=== PATIENT | female | born 1970 | race Caucasian/White ===

== ENCOUNTER 2017-06-26 10:23 | Emergency (ER) | payer OTHER ==
[~2017-06-26] VITALS: Ht 165.1 cm; Wt 122.5 kg
[~2017-06-26 10:23] MED LIST: CIPRO500 MG PO; HYDROCHLOROTH12.5 MG PO; IBUPROFEN 600600 M1 PO; LISINOPRIL-HCT1 EAC1 PO; LISINOPRIL-HCT1 EAC2; LISINOPRIL20 MG PO; MEDROL DOSPAK21 TA1 PO; METOPROLOL SUCC25 M1 PO; NAPROSYN500 MG PO; NORCO 5-325 TA1 EACH PO; ONDANSETRON HCL4 M2 PO; TOPROL XL50 MG; VENLAFAXINE H37.5 MG PO; ZANTAC 150MG T150 M1 PO; ZESTORETIC 20-1 EAC1 PO; ZOLOFT100 MG PO; ZPAK; ZPAK PO
[2017-06-26 11:18] LABS: ABSOLUTE BASOPHILS 0.1 thou/uL (0.0-0.2); ABSOLUTE EOSINOPHILS 0.2 thou/uL (0.0-0.7); ABSOLUTE LYMPHOCYTES 1.9 thou/uL (0.8-5.3); ABSOLUTE MONOCYTES 0.4 thou/uL (0.0-1.2); ABSOLUTE NEUTROPHILS 4.3 thou/uL (1.6-8.1); BASOPHILS 0.8 %; EOSINOPHILS 2.2 %; HEMATOCRIT 40.9 % (37.0-47.0); HEMOGLOBIN 13.9 gm/dL (12.0-15.0); LYMPHOCYTES 28.2 %; MCH 30.7 pg (26.0-34.0); MCV 90.4 fL (80.0-100.0); MONOCYTES 5.9 %; MPV 8.1 fl. (7.2-11.1); NUCLEATED RBCS 0 /100WBC; PLATELET COUNT* 268 thou/uL (150-400); POLYS 62.9 %; RBC 4.52 mil/uL (4.20-5.00); RDW-CV 13.3 % (10.5-14.5); WBC 6.8 thou/uL (4.0-11.0)
[2017-06-26 11:25] LABS: CALCIUM 8.9 mg/dL (8.5-10.1); CREATININE 0.8 mg/dL (0.6-1.3); POTASSIUM 3.3 mmol/L (3.5-5.1)
--- NOTE | 2017-06-26 11:25 | EKG ---
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: : 1970 Requested By: Gege Salvador Order Number: [id number] MD: Naman Bansal Measurements Intervals [place] Rate: 68 P: 50 DC: 168 QRS: -13 QRSD: 91 T: 27 QT: 418 QTc: 445 Interpretive Statements Sinus rhythm Probable left atrial enlargement Low voltage, precordial leads Compared to ECG 11/22/2016 09:37:51 No significant changes Electronically Signed On 06-26-2017 11:24:53 CDT by Naman Bansal [email or web address] <ELECTRONICALLY SIGNED> By: Naman Bansal MD, [facility] 06/26/17 1124 1047 104 Naman Bansal MD, FACC /EPI
[2017-06-26 11:30] LABS: URINE BILIRUBIN NEGATIVE (Negative); URINE BLOOD TRACE (Negative); URINE CLARITY CLEAR; URINE COLOR YELLOW; URINE GLUCOSE-RANDOM NEGATIVE (Negative); URINE KETONES NEGATIVE (Negative); URINE LEUKOCYTES-REFLEX NEGATIVE (Negative); URINE NITRITE-REFLEX NEGATIVE (Negative); URINE PROTEIN NEGATIVE (Negative); URINE SPECIFIC GRAVITY >= 1.030 (1.005-1.030); URINE UROBILINOGEN 0.2 E.U./dl (0.2-1.0)
[2017-06-26 11:30] LABS: ALBUMIN 3.6 g/dL (3.4-5.0); TOTAL BILIRUBIN 0.5 mg/dL (<0.1-1.0); TOTAL PROTEIN 7.1 g/dL (6.4-8.2)
[2017-06-26 11:37] LABS: AMP/METHAMP Negative (Negative); BARBITURATES Negative (Negative); BENZODIAZEPINES Negative (Negative); COCAINE Negative (Negative); METHADONE Negative (Negative); OPIATES Negative (Negative); PCP Negative (Negative); THC Negative (Negative)
[2017-06-26 12:48] VITALS: BP 138/85
== END 2017-06-26 12:49 | disposition home or self-care (01) ==
LOC: M.ERS 10:23
PROVIDERS: Nurse Practitioner Family
DX: B34.9 Viral infection, unspecified (principal); J30.9 Allergic rhinitis, unspecified; I10 Essential (primary) hypertension; F32.9 Major depressive disorder, single episode, unspecified; Z90.710 Acquired absence of both cervix and uterus; Z88.5 Allergy status to narcotic agent

== ENCOUNTER 2017-06-29 15:38 | Inpatient (IN) | payer OTHER ==
[~2017-06-29] VITALS: Ht 165.1 cm; Wt 123.4 kg
[2017-06-29 15:47] VITALS: BP 155/99
--- NOTE | 2017-06-29 16:10 | NUR ---
TO C.T. SCAN VIA STRETCHER W/ RN & MOTOR VEHICLE DISPATCHER IN USE.
[2017-06-29 16:13] LABS: ABSOLUTE BASOPHILS 0.1 thou/uL (0.0-0.2); ABSOLUTE EOSINOPHILS 0.2 thou/uL (0.0-0.7); ABSOLUTE LYMPHOCYTES 2.8 thou/uL (0.8-5.3); ABSOLUTE MONOCYTES 0.8 thou/uL (0.0-1.2); ABSOLUTE NEUTROPHILS 4.7 thou/uL (1.6-8.1); BASOPHILS 0.8 %; EOSINOPHILS 2.2 %; HEMATOCRIT 42.8 % (37.0-47.0); HEMOGLOBIN 14.7 gm/dL (12.0-15.0); LYMPHOCYTES 32.8 %; MCH 31.4 pg (26.0-34.0); MCHC 34.3 g/dL (28.0-37.0); MCV 91.7 fL (80.0-100.0); MONOCYTES 9.5 %; MPV 8.1 fl. (7.2-11.1); NUCLEATED RBCS 0 /100WBC; PLATELET COUNT* 300 thou/uL (150-400); POLYS 54.7 %; RBC 4.67 mil/uL (4.20-5.00); RDW-CV 13.1 % (10.5-14.5); WBC 8.5 thou/uL (4.0-11.0)
--- NOTE | 2017-06-29 16:17 | NUR ---
RETURNED FROM CT SCAN TO ED ROOM. MIC MALONE.
[2017-06-29 16:21] LABS: ANION GAP 10 mmol/L (7-16); BUN 18 mg/dL (7-18); CALCIUM 9.2 mg/dL (8.5-10.1); CHLORIDE 103 mmol/L (98-107); CO2 27 mmol/L (21-32); CREATININE 0.8 mg/dL (0.6-1.3); GLUCOSE 103 mg/dL (70-99); POTASSIUM 3.8 mmol/L (3.5-5.1); SODIUM 140 mmol/L (136-145)
[2017-06-29 16:23] LABS: PROTIME 9.8 Seconds (9.20-11.50)
[2017-06-29 16:27] LABS: POC CA IONIZED 4.7 mg/dL (4.5-5.3); POC CREATININE 0.7 mg/dL (0.6-1.3); POC POTASSIUM 3.8 mmol/L (3.5-4.9)
[2017-06-29 16:32] LABS: ACETAMINOPHEN < 2 ug/mL (10-30); ALBUMIN 3.8 g/dL (3.4-5.0); ALCOHOL < 10 mg/dL (<10); ALKALINE PHOSPHATASE 77 U/L (46-116); LIPASE 157 U/L (73-393); NT-PRO BRAIN NAT PEPTIDE 32 pg/mL (<300); SALICYLATE < 2.8 mg/dL (2.8-20.0); SGOT 50 U/L (15-37); SGPT 66 U/L (30-65); TOTAL BILIRUBIN 0.2 mg/dL (<0.1-1.0); TOTAL PROTEIN 7.6 g/dL (6.4-8.2); TROPONIN-I LEVEL <0.06 ng/mL (<0.06)
[2017-06-29 16:52] LABS: URINE BILIRUBIN NEGATIVE (Negative); URINE BLOOD NEGATIVE (Negative); URINE CLARITY SL CLOUDY; URINE COLOR YELLOW; URINE GLUCOSE-RANDOM NEGATIVE (Negative); URINE KETONES NEGATIVE (Negative); URINE LEUKOCYTES-REFLEX NEGATIVE (Negative); URINE NITRITE-REFLEX NEGATIVE (Negative); URINE PROTEIN NEGATIVE (Negative); URINE SPECIFIC GRAVITY <= 1.005 (1.005-1.030); URINE UROBILINOGEN 0.2 E.U./dl (0.2-1.0)
[2017-06-29 17:04] LABS: BACTERIA-REFLEX 1-9 Few /HPF (None Seen); CASTS None Seen /LPF (None Seen); CRYSTALS None Seen /LPF (None Seen); MUCUS 0-3 Light strn/LPF (None Seen); SQUAMOUS >10 Many /LPF (0-3); URINE RBC 0-2 Rare /HPF (0-2); URINE WBC-REFLEX None Seen /HPF (0-5)
[2017-06-29 17:09] LABS: AMP/METHAMP Negative (Negative); BARBITURATES Negative (Negative); BENZODIAZEPINES Negative (Negative); COCAINE Negative (Negative); METHADONE Negative (Negative); OPIATES Negative (Negative); PCP Negative (Negative); THC Negative (Negative)
--- NOTE | 2017-06-29 17:18 | NUR ---
RAMÓN IN MRI REQUESTS PT COME TO MRI PRIOR TO GOING TO TELEMETRY AND CONCRETE PRECAST MOULDER WILL TAKE PT TO TELEMETRY. TRANSITION ASSISTANT LACY NOTIFIED OF SAME.
[2017-06-29 18:09] VITALS: BP 144/90
[2017-06-29 18:58] VITALS: BP 150/98
[2017-06-29 20:00] VITALS: BP 177/100
[2017-06-30] VITALS: BP 144/88
[2017-06-30 04:00] VITALS: BP 103/70; BP 110/63
--- NOTE | 2017-06-30 04:31 | NUR ---
PATIENT RESTED IN BED. PATIENT COMPLAIN OF SHORTNESS OF BREATH, CHEST PAIN, TIGHNESS OF THROAT ONCE LEVOFLOXACIN BEGUN TO RUN. INFUSION STOPPED, NOT COMPLETED. DOCTOR NOTIFIED, NO NEW ORDERS. PATIENTS SYMPTOMS WERE COMPLETELY RESOLVED. PATIENT NO LONGER COMPLAINS OF TIGHNESS OF THROAT. PATIENT DOES NOT HAVE CHEST PAIN. PATIENT NOT HAVE SHORTNESS OF BREATH. PATIENT IS NPO FOR SPEECH EVALUATION. PATIENT DOOES NOT SHOW SIGNS OF CONFUSION OR SLURRED SPEECH. PATIENT IS NOT SHOWING SIGNS OF DISTRESS. FALL PRECAUTIONS IN PLACE, BLOOD PRESSURE AND VITALS ARE WITHIN NORMAL. CALL LIGHT WITHIN REACH, HOURLY ROUNDING OBSERVED.
[2017-06-30 05:10] LABS: CHOLESTEROL 204 mg/dL (<200); HDL CHOLESTEROL 43 mg/dL (>40); LDL CHOLESTEROL 118 mg/dL (<100); TC:HDL 4.7 Ratio (Not establshd); TRIGLYCERIDE 219 mg/dL (<150); VLDL 44 mg/dL (<40)
[2017-06-30 05:11] LABS: SERUM ASSESSMENT CLEAR
[2017-06-30] MEDS ORDERED: LIPITOR40 MG PO ×2 (05:54→09:31)
[2017-06-30] MEDS ORDERED: MINOCIN100 MG PO ×2 (05:54→09:31)
[2017-06-30 07:54] VITALS: BP 114/57
[2017-06-30 08:00] VITALS: BP 114/57
[2017-06-30] MEDS ORDERED: ASPIR 8181 MG PO (09:34)
[2017-06-30 09:38] VITALS: BP 114/57
--- NOTE | 2017-06-30 10:01 | NUR ---
P.T. ORDERS RECEIVED. CHART REVIEWED. NSG AND PT INDICATE PT UP INDEP. PT REPORTS CONTINUED DIZZINESS, BUT NO CONCERNS RE GENERAL MOBILITY. PT STATES SHE SAW HER DR ON WHEN DIZZINESS STARTED AND WAS GIVEN VERTIGO EXERCISE WHICH HAVE NOT ALLEVIATED SYMPTOMS. PT TO DISCHARGE TODAY AFTER EEG. RECOMMENDED PT CONSIDER OUTPT P.T. IF SYMPTOMS PERSISTS AFTER DISCHARGE. NO ACUTE P.T. INTERVENTION INDICATED AT THIS TIME.
--- NOTE | 2017-06-30 10:55 | EKG ---
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: Belkys SYKES : 1970 Requested By: Lam Elias Order Number: [id number] MD: Naman Bansal Measurements Intervals [place] Rate: 74 P: 58 [place]: 163 QRS: -17 QRSD: 89 T: 25 QT: 402 QTc: 446 Interpretive Statements Sinus rhythm Borderline left axis deviation Low voltage, precordial leads Compared to ECG 06/26/2017 10:47:36 No significant changes Electronically Signed On 06-30-2017 10:55:32 CDT by Naman Bansal [email or web address] <ELECTRONICALLY SIGNED> By: Naman Bansal MD, [facility] 06/30/17 1055 1626 1626 Naman Bansal MD, [facility] /EPI
--- NOTE | 2017-06-30 10:59 | EKG ---
[place] [address] ELECTROCARDIOGRAM REPORT Name: JUANITOENA Shaw Room: [address] ADM IN .R.#: [id number] Admission: 06/29/17 Attend Phys: Ayanna Elias Discharge: Date of : 66 Report #: [id number] THIS REPORT FOR: //name// [facility] Test Date: 2017-06-29 Test Time: 22:34:32 Pat Name: ENA SOLOMON Department: Room: [address] Gender: F Physician Assistant: ALBERTO : 1970 Requested By: Anand Dickerson Order Number: [id number] Suzanna MD: Naman Bansal Measurements Intervals [place] Rate: 71 P: 61 [place]: 171 QRS: -9 QRSD: 90 T: 32 QT: 396 QTc: 431 Interpretive Statements Sinus rhythm Low voltage, precordial leads Electronically Signed On 06-30-2017 10:59:30 CDT by Naman Bansal [email or web address] <ELECTRONICALLY SIGNED> By: Naman Bansal MD, [facility] 06/30/17 1059 2234 33 Naman Bansal MD, FACC /EPI
[2017-06-30 13:02] VITALS: BP 135/86
--- NOTE | 2017-06-30 14:14 | NUR ---
TELE AND IV DISCONTINUED. PT UNDERSTAND ALL FOLLOW UP ORDERS. DISCHARGED TO HOME.
--- NOTE | 2017-06-30 14:29 | 2DMMODE ---
[place] [address] 2 D/M-MODE ECHOCARDIOGRAM Name: ENA SOLOMON Room: [address] IN [facility]#: [id number] Admission: 06/29/17 Attend Phys: Anand Dickerson Discharge: Date of : 66 Date of Service: 06/30/17 1429 Report #: [id number] THIS REPORT FOR: //name// APPROVED REPORT Study performed: 06/30/2017 10:29:51 EXAM: Comprehensive 2D, Doppler, and color-flow Echocardiogram Patient Location: In-Patient Room #: 229 Status: routine BSA: 2.17 HR: 66 bpm BP: 114/57 mmHg Rhythm: NSR Other Information Study Quality: Good Indications CVA/TIA Echo Enhancing Agent Indication: Rule out Shunt Agent(s) / Amount(s) Used: Agitated Saline 10 cc 2D Dimensions LVEF(%): 74.56 (>50%) IVSd: 9.35 (7-11mm) LVOT Diam: 19.57 (18-24mm) LVDd: 44.50 mm PWd: 10.02 (7-11mm) Ascending Ao: 36.75 (22-36mm) LVDs: 25.26 (25-40mm) Aortic Root: 32.69 mm Cooper's LVEF: 74.56 % Volumes Left Atrial Volume (Systole) LA ESV Index: 19.10 mL/m2 Aortic Valve AoV Peak Ej.: 1.27 m/s AO Peak Gr.: 6.46 mmHg LVOT Max P.36 mmHg AO Mean Gr.: 3.64 mmHg LVOT Mean P.10 mmHg LVOT Max V: 1.36 m/s AO V2 VTI: 25.81 cm LVOT Mean V: 0.79 m/[place] [address] 2 D/M-MODE ECHOCARDIOGRAM Name: ENA SOLOMON Room: [address] IN [facility].#: [id number] Admission: 06/29/17 Attend Phys: Anand Dickerson Discharge: Date of : 66 Date of Service: 06/30/17 1429 Report #: [id number] COLIN (VTI): 3.34 cm2 LVOT V1 VTI: 28.65 cm Mitral Valve E/A Ratio: 0.75 MV Decel. Time: 219.63 ms MV E Max Ej.: 0.79 m/s MV PHT: 63.69 ms MVA (PHT): 3.45 cm2 TDI E/Lateral E': 9.88 E/Medial E': 8.78 Medial E' Ej.: 0.09 m/s Lateral E' Ej.: 0.08 m/s Pulmonary Valve PV Peak Ej.: 0.90 m/s PV Peak Gr.: 3.23 mmHg Left Ventricle The left ventricle is normal size. There is normal LV segmental wall motion. There is normal left ventricular wall thickness. Left ventricular systolic function is normal. The left ventricular ejection fraction is within the normal range. LVEF is 60-65%. Grade I - abnormal relaxation pattern. Right Ventricle The right ventricle is normal size. The right ventricular systolic function is normal. Atria The left atrium size is normal. Interatrial septum is intact without evidence of ASD or PFO. The right atrium size is normal. Aortic Valve The aortic valve is normal in structure. No aortic regurgitation is present. There is no aortic valvular stenosis. Mitral Valve The mitral valve is normal in structure. Trace mitral regurgitation. No evidence of mitral valve stenosis. Tricuspid Valve The tricuspid valve is normal in structure. Unable to assess PA pressure. Trace tricuspid regurgitation. Pulmonic Valve Pulmonic valve is not well visualized. There [place] [address] 2 D/M-MODE ECHOCARDIOGRAM Name: ENA SOLOMON Room: [address] IN M.R.#: [id number] Admission: 06/29/17 Attend Phys: Anand Dickerson Discharge: Date of : 66 Date of Service: 06/30/17 1429 Report #: [id number] regurgitation. Great Vessels The aortic root is normal in size. IVC is not well visualized. Pericardium There is no pericardial effusion. <Conclusion> Left ventricular systolic function is normal. The left ventricular ejection fraction is within the normal range. <ELECTRONICALLY SIGNED> By: Naman Bansal MD, [facility] 06/30/17 1429 1429 1429 Naman Bansal MD, FACC /INF
[2017-06-30 23:07] LABS: GLYCOHEMOGLOBIN (HGB A1C) 5.8 % (4.8-5.6)
--- NOTE | 2017-07-04 21:54 | EEG ---
[address] [address] EEG STUDY REPORT Name: MOISES SOLOMONLY Shaw Room: [address] IN M.R.#: [id number] Admission: 06/29/17 Attend Phys: Ayanna Elias Discharge: 06/30/17 Date of : 66 Report #: [id number] THIS REPORT FOR: //name// CC: [facility] physician/PCP Anand Dickerson DESCRIPTION: This patient is being evaluated for dizziness. EEG was done by placing the electrode by standard 10-20 system of electrode placement. Both referential and sequential montages were used for recording. Background activity in this patient's EEG is about 8 Hz and 30 microvolts. The patient went to sleep that is associated with bilaterally symmetrical sleep spindle and vertex sharp waves. Photic stimulation is unremarkable. Throughout the record, no active epileptiform activity was noticed. IMPRESSION: This patient's EEG is within normal limits. Thank you very much for this referral. <ELECTRONICALLY SIGNED> By: Ronald Rios MD 07/04/17 2154 1737 1754Pmaría Rios MD /nt
--- NOTE | 2017-07-04 21:54 | CON ---
[address] [address] CONSULTATION Name: ENA SOLOMON Room: [address] IN M.R.#: [id number] Admission: 06/29/17 Attend Phys: Ayanna Elias Discharge: 06/30/17 Date of : 66 Report #: [id number] THIS REPORT FOR: //name// CC: [facility] physician/PCP Anand Dickerson DATE OF SERVICE: 06/30/2017 HISTORY OF PRESENT ILLNESS: This is a 46-year-old female patient who was evaluated by me for any neurological etiologies or the patient's vertigo. She indicated that she woke up on Monday morning with dizziness and she was diagnosed with vertigo by her family doctor. She had some episode of confusion, but that history is not completely clear. She said her speech was not very good. It was not associated with any headache and she has no prior history of migraine. REVIEW OF SYSTEMS: I carried out the 14-point review of system. She denies any anxiety or depression, but looks like she is on Zoloft. She has a previous history of hysterectomy as I understand. These episodes are new for her. Otherwise, 14-point review of systems is mostly noncontributory. She is denying any new eye, ENT, respiratory, GI, , musculoskeletal, constitutional, dermatological, hematological, throat, allergic symptoms. I reviewed her records. She has record in the past and she has been admitted with possible pancreatitis, chest pain. One of the record does indicate that she was admitted at one time with a headache and visual disturbances. At one time, she was seen by Dr. Turner and her diagnosis was migraine headache. PAST MEDICAL HISTORY: She denies any migraine headache in the past, but the record indicated that she may have been diagnosed with that. FAMILY HISTORY: Unremarkable. SOCIAL HISTORY: She has a daughter here and the daughter provided some of the history. The patient does not have any history of smoking. PHYSICAL EXAMINATION: The patient's examinations indicate she is alert, she is responsive, she can follow simple commands. Her speech, concentration, fund of knowledge and memory looks unremarkable. Cranial nerve examination 2-12 is unremarkable. She has symmetrical strength, sensation, reflexes and tones in all 4 extremities. There is no meningeal sign. There is no carotid bruit. There is no thyroid mass. She is moderately built individual who does not have any dysmorphic features of eyes, ears and face. Her visions and hearing look adequate. Her pulses are palpable. She has no edema, cyanosis or jaundice. Cardiac examination does not show any abnormality. Respiratory examination does not show any respiratory difficulty [place] [address] CONSULTATION Name: BRENDAJose LENA Room: [address] IN M.R.#: [id number] Admission: 06/29/17 Attend Phys: Ayanna Elias Discharge: 06/30/17 Date of : 66 Report #: [id number] LABORATORY DATA: Indicated normal white count and sodium. MRIs were reviewed and they are unremarkable. IMPRESSION: It is unlikely that there is any neurological etiology for the patient's symptoms. I will get an EEG to further exclude that. She does have other problems like dyslipidemia, which will predispose her for transient ischemic attacks and those probably need to be addressed. RECOMMENDATIONS: I discussed with the patient and I discussed with her that neurological etiology is unlikely and we should concentrate on non-neurological etiologies including ENT. I asked her to talk to the admitting doctor about it because I do not think any ENT physician comes here. I will check an EEG, but if EEG is unremarkable that will make it even less likely that the patient's symptoms are neurological in origin and I do not think any further workup need to be done in that regard, but other things need to be managed in this patient including dyslipidemia. Thank you very much for this referral. <ELECTRONICALLY SIGNED> By: Ronald Rios MD 07/04/17 2154 0932 1531Pmaría Rios MD /nt
--- NOTE | 2017-07-25 15:21 | CON ---
[address] [address] CONSULTATION Name: BRENDAJose LENA Room: [address] IN M.R.#: [id number] Admission: 06/29/17 Attend Phys: Ayanna Elias Discharge: 06/30/17 Date of : 66 Report #: [id number] THIS REPORT FOR: //name// CC: [facility] physician/PCP Anand Dickerson REASON FOR CONSULTATION AND HISTORY OF PRESENT ILLNESS: Evaluation and recommendations regarding post-acute rehabilitation in a 46-year-old female admitted via the Emergency Department where she presented with dizziness for 2 days, which was worsening. She also had experienced some associated confusion. She was brought to the ER by her daughter. She did describe facial and tongue numbness, headache, left-sided body tingling and slurred speech. No loss of consciousness, no fever, back pain or any other pains at that time. This has been ongoing since Monday. Her previous level of function was independent with activities of daily living. Her current level of function, supervision with occupational therapies. No data on physical therapy or speech and language pathology at the time of this consult. MRI of the brain, carotids and big [place] of [place] were within normal limits and showed no significant intracranial issues. PAST MEDICAL HISTORY: Bilateral tubal ligation, endometrial ablation, hysterectomy, hypertension, depression. MEDICATIONS: Reviewed and are available in the MAR. FAMILY HISTORY: Reviewed and not pertinent. SOCIAL HISTORY: No tobacco or recreational drug use. She does utilize alcohol from time to time. ALLERGIES: MORPHINE. ASSESSMENT: Left-sided numbness, tingling and altered sensations with headache. She is noted to have a normal MRI. PLAN: We will follow during the acute hospital stay, likely will not need any significant further intensive therapies, but we will follow to see how the other therapies respond with their notes. <ELECTRONICALLY SIGNED> By: Beatrice Cruz DO 07/25/17 1521 1256 1353Kanthony Cruz DO /nt
== END 2017-06-30 14:00 | disposition home or self-care (01) | DRG 69 ==
LOC: M.ERS 15:38 → M.TBA-ER 16:49 → M.2W 16:49
PROVIDERS: Emergency Medicine; ADMIT Internal Medicine
DX: G45.9 Transient cerebral ischemic attack, unspecified (principal); N39.0 Urinary tract infection, site not specified; Z68.42 Body mass index [BMI] 45.0-49.9, adult; I10 Essential (primary) hypertension; F32.9 Major depressive disorder, single episode, unspecified; R47.1 Dysarthria and anarthria; E66.9 Obesity, unspecified; E78.5 Hyperlipidemia, unspecified; Z90.710 Acquired absence of both cervix and uterus; Z88.6 Allergy status to analgesic agent; Z88.8 Allergy status to other drugs, medicaments and biological substances

== ENCOUNTER 2017-10-10 09:18 | Emergency (ER) | payer OTHER ==
[~2017-10-10] VITALS: Ht 165.1 cm; Wt 123.6 kg
[~2017-10-10 09:18] MED LIST changes: +ASPIR 8181 MG PO; +LIPITOR40 MG PO; +MINOCIN100 MG PO
[2017-10-10 09:42] LABS: ABSOLUTE EOSINOPHILS 0.1 thou/uL (0.0-0.7); ABSOLUTE LYMPHOCYTES 1.7 thou/uL (0.8-5.3); ABSOLUTE MONOCYTES 0.4 thou/uL (0.0-1.2); ABSOLUTE NEUTROPHILS 2.9 thou/uL (1.6-8.1); BASOPHILS 0.8 %; EOSINOPHILS 2.8 %; HEMATOCRIT 42.2 % (37.0-47.0); HEMOGLOBIN 14.2 gm/dL (12.0-15.0); LYMPHOCYTES 32.7 %; MCH 30.6 pg (26.0-34.0); MCHC 33.6 g/dL (28.0-37.0); MCV 91.2 fL (80.0-100.0); MONOCYTES 8.2 %; MPV 8.8 fl. (7.2-11.1); NUCLEATED RBCS 0 /100WBC; PLATELET COUNT* 259 thou/uL (150-400); POLYS 55.5 %; RBC 4.63 mil/uL (4.20-5.00); RDW-CV 13.6 % (10.5-14.5); WBC 5.3 thou/uL (4.0-11.0)
[2017-10-10 09:48] LABS: ANION GAP 10 mmol/L (7-16); BUN 25 mg/dL (7-18); CALCIUM 8.7 mg/dL (8.5-10.1); CHLORIDE 105 mmol/L (98-107); CO2 24 mmol/L (21-32); CREATININE 0.8 mg/dL (0.6-1.3); GLUCOSE 115 mg/dL (70-99); POTASSIUM 3.6 mmol/L (3.5-5.1); SODIUM 139 mmol/L (136-145)
[2017-10-10 09:51] LABS: INR 1.1; PROTIME 10.7 Seconds (9.20-11.50)
[2017-10-10 10:02] LABS: ALBUMIN 3.7 g/dL (3.4-5.0); ALKALINE PHOSPHATASE 56 U/L (46-116); NT-PRO BRAIN NAT PEPTIDE 55 pg/mL (<300); SGOT 42 U/L (15-37); SGPT 53 U/L (30-65); TOTAL BILIRUBIN 0.5 mg/dL (<0.1-1.0); TOTAL PROTEIN 7.4 g/dL (6.4-8.2); TROPONIN-I LEVEL <0.06 ng/mL (<0.06)
[2017-10-10 10:28] LABS: URINE BILIRUBIN NEGATIVE (Negative); URINE BLOOD TRACE (Negative); URINE CLARITY CLEAR; URINE COLOR YELLOW; URINE GLUCOSE-RANDOM NEGATIVE (Negative); URINE KETONES NEGATIVE (Negative); URINE LEUKOCYTES-REFLEX NEGATIVE (Negative); URINE NITRITE-REFLEX NEGATIVE (Negative); URINE PROTEIN NEGATIVE (Negative); URINE SPECIFIC GRAVITY >= 1.030 (1.005-1.030); URINE UROBILINOGEN 0.2 E.U./dl (0.2-1.0)
[2017-10-10 11:31] VITALS: BP 119/74
--- NOTE | 2017-10-10 16:50 | EKG ---
[place] [address] ELECTROCARDIOGRAM REPORT Name: ENA SOLOMON Room: [facility]#: [id number] Admission: 10/10/17 Attend Phys: Discharge: 10/10/17 Date of : 66 Report #: [id number] THIS REPORT FOR: //name// [facility] ED Test Date: 2017-10-10 Test Time: 09:30:16 Pat Name: ENA SOLOMON Department: Room: Gender: F Matcher: : 1970 Requested By: Angelito Arenas Order Number: [id number] MD: Alirio Kumra Measurements Intervals [place] Rate: 70 P: 49 VT: 166 QRS: -14 QRSD: 96 T: 5 QT: 424 QTc: 458 Interpretive Statements Sinus rhythm Probable left atrial enlargement Low voltage, precordial leads Consider anterior infarct Compared to ECG 06/29/2017 22:34:32 Myocardial infarct finding now present Electronically Signed On 10-10-2017 16:50:13 CDT by Aliiro Kumar [email or web address] <ELECTRONICALLY SIGNED> By: Alirio Kumar MD, [facility] 10/10/17 1650 0930 0930 Alirio Kumar MD, [facility] /EPI
== END 2017-10-10 11:32 | disposition home or self-care (01) ==
LOC: M.ERS 09:18
PROVIDERS: Family Medicine
DX: R42 Dizziness and giddiness (principal); R20.0 Anesthesia of skin; R20.2 Paresthesia of skin; I10 Essential (primary) hypertension; F32.9 Major depressive disorder, single episode, unspecified; Z90.710 Acquired absence of both cervix and uterus; Z88.1 Allergy status to other antibiotic agents; Z88.5 Allergy status to narcotic agent

== ENCOUNTER 2018-02-08 12:23 | Emergency (ER) | payer OTHER ==
[~2018-02-08] VITALS: Ht 165.1 cm; Wt 118.4 kg
[2018-02-08 12:47] LABS: ABSOLUTE BASOPHILS 0.1 thou/uL (0.0-0.2); ABSOLUTE EOSINOPHILS 0.2 thou/uL (0.0-0.7); ABSOLUTE LYMPHOCYTES 2.4 thou/uL (0.8-5.3); ABSOLUTE MONOCYTES 0.6 thou/uL (0.0-1.2); ABSOLUTE NEUTROPHILS 5.6 thou/uL (1.6-8.1); BASOPHILS 0.8 %; EOSINOPHILS 2.2 %; HEMATOCRIT 41.5 % (37.0-47.0); HEMOGLOBIN 14.1 gm/dL (12.0-15.0); LYMPHOCYTES 27.3 %; MCH 30.8 pg (26.0-34.0); MCHC 33.9 g/dL (28.0-37.0); MCV 90.8 fL (80.0-100.0); MONOCYTES 6.3 %; MPV 8.5 fl. (7.2-11.1); NUCLEATED RBCS 0 /100WBC; PLATELET COUNT* 294 thou/uL (150-400); POLYS 63.4 %; RBC 4.57 mil/uL (4.20-5.00); RDW-CV 13.4 % (10.5-14.5); WBC 8.9 thou/uL (4.0-11.0)
[2018-02-08 13:01] LABS: ANION GAP 9 mmol/L (7-16); BUN 20 mg/dL (7-18); CHLORIDE 102 mmol/L (98-107); CO2 28 mmol/L (21-32); CREATININE 0.9 mg/dL (0.6-1.3); GLUCOSE 90 mg/dL (70-99); POTASSIUM 3.7 mmol/L (3.5-5.1); SODIUM 139 mmol/L (136-145)
[2018-02-08 13:02] LABS: APTT 27.3 Seconds (25.0-31.3)
[2018-02-08 13:20] LABS: ALBUMIN 3.8 g/dL (3.4-5.0); ALKALINE PHOSPHATASE 75 U/L (46-116); CK-MB MASS 8.3 ng/mL (<0.5-3.6); LIPASE 153 U/L (73-393); MAGNESIUM 1.9 mg/dL (1.8-2.4); NT-PRO BRAIN NAT PEPTIDE 138 pg/mL (<300); SGOT 43 U/L (15-37); SGPT 50 U/L (30-65); TOTAL BILIRUBIN 0.3 mg/dL (<0.1-1.0); TOTAL PROTEIN 7.7 g/dL (6.4-8.2); TROPONIN-I LEVEL <0.06 ng/mL (<0.06)
[2018-02-08 13:42] VITALS: BP 137/83
--- NOTE | 2018-02-08 15:52 | EKG ---
[place] [address] ELECTROCARDIOGRAM REPORT Name: ENA SOLOMON Room: [facility]#: [id number] Admission: 02/08/18 Attend Phys: Discharge: 02/08/18 Date of : 66 Report #: [id number] THIS REPORT FOR: //name// [facility] ED Test Date: 2018-02-08 Test Time: 12:38:20 Pat Name: ENA SOLOMON Department: Room: Gender: F Roll Contour Grinder: MIMI : 1970 Requested By: Angelito Arenas Order Number: [id number] MD: Naman Bansal Measurements Intervals [place] Rate: 66 P: 50 [place]: 176 QRS: -7 QRSD: 91 T: 21 QT: 432 QTc: 453 Interpretive Statements Sinus rhythm Probable left atrial enlargement Low voltage, precordial leads Baseline wander in lead(s) II Compared to ECG 10/10/2017 09:30:16 no change Electronically Signed On 02-08-2018 15:52:10 DIETARY CLERK by Naman Bansal [email or web address] <ELECTRONICALLY SIGNED> By: Naman Bansal MD, [facility] 02/08/18 1552 1238 1238 Naman Bansal MD, [facility] /EPI
== END 2018-02-08 13:43 | disposition home or self-care (01) ==
LOC: M.ERS 12:23
PROVIDERS: Family Medicine
DX: R07.89 Other chest pain (principal); R42 Dizziness and giddiness; I10 Essential (primary) hypertension; F32.9 Major depressive disorder, single episode, unspecified; Z90.710 Acquired absence of both cervix and uterus; Z88.1 Allergy status to other antibiotic agents; Z88.5 Allergy status to narcotic agent

== ENCOUNTER 2020-06-03 12:58 | Emergency (ER) | payer BC ==
[~2020-06-03] VITALS: Ht 165.1 cm; Wt 105.7 kg
[2020-06-03 13:35] LABS: URINE BILIRUBIN NEGATIVE (Negative); URINE BLOOD TRACE (Negative); URINE CLARITY CLEAR; URINE COLOR YELLOW; URINE GLUCOSE-RANDOM NEGATIVE (Negative); URINE KETONES NEGATIVE (Negative); URINE LEUKOCYTES-REFLEX NEGATIVE (Negative); URINE NITRITE-REFLEX NEGATIVE (Negative); URINE PROTEIN NEGATIVE (Negative); URINE SPECIFIC GRAVITY >= 1.030 (1.005-1.030); URINE UROBILINOGEN 0.2 E.U./dl (0.2-1.0)
[2020-06-03 13:52] LABS: ABSOLUTE EOSINOPHILS 0.2 thou/uL (0.0-0.7); ABSOLUTE LYMPHOCYTES 2.1 thou/uL (0.8-5.3); ABSOLUTE MONOCYTES 0.6 thou/uL (0.0-1.2); BASOPHILS 0.6 %; EOSINOPHILS 1.9 %; HEMATOCRIT 40.5 % (37.0-47.0); HEMOGLOBIN 13.4 gm/dL (12.0-15.0); LYMPHOCYTES 26.3 %; MCH 30.8 pg (26.0-34.0); MCHC 33.2 g/dL (28.0-37.0); MCV 92.8 fL (80.0-100.0); MONOCYTES 7.2 %; MPV 8.5 fl. (7.2-11.1); NUCLEATED RBCS 0 /100WBC; PLATELET COUNT* 280 thou/uL (150-400); RBC 4.36 mil/uL (4.20-5.00); RDW-CV 13.5 % (10.5-14.5); WBC 7.9 thou/uL (4.0-11.0)
[2020-06-03 14:02] LABS: CALCIUM 8.9 mg/dL (8.5-10.1); CREATININE 0.8 mg/dL (0.6-1.3); POTASSIUM 3.6 mmol/L (3.5-5.1)
[2020-06-03 14:06] LABS: ALBUMIN 3.8 g/dL (3.4-5.0); TOTAL BILIRUBIN 0.6 mg/dL (<0.1-1.0); TOTAL PROTEIN 7.5 g/dL (6.4-8.2)
[2020-06-03] MEDS ORDERED: BENTYL 10 MG CA10 M1 PO ×2 (14:54→14:56)
[2020-06-03] MEDS ORDERED: ZOFRAN ODT4 MG PO ×2 (14:54→14:56)
[2020-06-03] MEDS ORDERED: CARAFATE 1 GM TA1 G1 PO ×2 (14:54→14:56)
[2020-06-03 15:01] VITALS: BP 113/70
== END 2020-06-03 15:02 | disposition home or self-care (01) ==
LOC: M.ERS 12:58
PROVIDERS: Nurse Practitioner
DX: R10.11 Right upper quadrant pain (principal); R11.2 Nausea with vomiting, unspecified; I10 Essential (primary) hypertension; F32.9 Major depressive disorder, single episode, unspecified; Z98.51 Tubal ligation status; Z90.711 Acquired absence of uterus with remaining cervical stump; Z79.899 Other long term (current) drug therapy; Z79.82 Long term (current) use of aspirin; Z88.1 Allergy status to other antibiotic agents; Z88.5 Allergy status to narcotic agent